=== PATIENT | female | born 1970 | race Caucasian/White ===

== ENCOUNTER 2021-03-18 10:39 | Emergency (ER) | payer OTHER ==
[2021-03-19 05:07] LABS: SARS-CoV-2 NAA Not Detected (Not Detected)
== END 2021-03-18 13:59 | disposition home or self-care (01) ==
LOC: JVIRT 10:39
DX: Z20.822 Contact with and (suspected) exposure to COVID-19 (principal)
CPT/HCPCS: C9803; G2251-GT; Q3014-GT; U0003; U0005